=== PATIENT | male | born 1960 | race Caucasian/White ===

== ENCOUNTER 2020-05-16 14:06 | Outpatient (CLI) | payer OTHER, SELFPAY ==
--- NOTE | ~2020-05-16 | US_ITS ---
EXAMINATION: US art doppler w ester DYKES EXAM DATE: 05/16/2020 14:59 INDICATION: Leg claudication, pain. TECHNIQUE: Segmental pressures and plethysmographic and Doppler waveforms of the brachial and lower e xtremity arteries were obtained. There is no prior study for comparison. FINDINGS: Right and left brachial artery pressures of 126 mm Hg and 135 mm Hg, respectively, are concordant (no rmal difference <= 30 mmHg). The right and left thigh-brachial pressure indices are 0.50, 0.44, resp ectively (normal > 1.2). RIGHT LEG: The ankle-brachial index (WALESKA) is 0.53 (normal >= 0.9-1). The great toe-brachial index (TBI) is 0.59 (normal >= 0.65). The lower extremity ratios, segmental pressure gradients as follows; Proximal superficial femoral artery:- 0.50 (68 mmHg). Distal superficial femoral artery: ----- 0.54 (73 mmHg). Popliteal: 0.55 (77 mmHg). Dorsalis pedis: 0.47 (64 mmHg). Posterior tibial: 0.53 (71 mmHg). (Normal gradients <= 20-30 mmHg between adjacent levels on the same leg or the same levels on the two legs). Arterial waveforms are monophasic. LEFT LEG: The ankle-brachial index (WALESKA) is 0.47 (normal >= 0.9-1). The great toe-brachial index (TBI) is 0.42 (normal >= 0.65). The lower extremity ratios, segmental pressure gradients as follows; Proximal superficial femoral artery:- 0.44 (60 mmHg). Distal superficial femoral artery: ----- 0.41 (56 mmHg). Popliteal: 0.47 (64 mmHg). Dorsalis pedis: 0.47 (64 mmHg). Posterior tibial: 0.47 (63 mmHg). (Normal gradients <= 20-30 mmHg between adjacent levels on the same leg or the same levels on the two legs). Arterial waveforms are monophasic. IMPRESSION: 1. Right ankle-brachial index 0.53, moderately decreased. 2. Left ankle-brachial index 0.47, moderately decreased. 3. Segmental pressures as above suggesting inflow stenosis which could indicate significant aortoili ac arterial sclerosis. This could be further evaluated with CTA abdomen pelvis with contrast. Reviewed, dictated and finalized at location B. IS DESK TEAM MEMBER IMPRESSION: 1. Right ankle-brachial index 0.53, moderately decreased. 2. Left ankle-brachial index 0.47, moderately decreased. 3. Segmental pressures as above suggesting inflow stenosis which could indicat e significant aortoiliac arterial sclerosis. This could be further evaluated wi CTA abdomen pelvis with contrast.
--- NOTE | ~2020-05-16 | XR_ITS ---
EXAMINATION: XR lumbar spine 2-3V DATE: 05/16/2020 14:29 INDICATION: Leg pain and claudication TECHNIQUE: Anteroposterior and lateral views of the lumbar spine, and cone-down lateral view of the l umbosacral junction were obtained. COMPARISON: 05/22/2015 FINDINGS: Alignment is normal. Chronic mild anterior wedging at T12. Lumbar vertebral body heights are normal. Mild disc height loss at T10-T11 through T12-L1. Lumbar disc heights are preserved with mild degenera tive endplate changes. Moderate lower lumbar facet osteoarthritis. IMPRESSION: 1. Mild lumbar and lower thoracic spondylosis. Reviewed, dictated and finalized at location A. NICAL PROGRAMS MANAGER
== END 2020-05-16 14:07 | disposition home or self-care (01) ==
LOC: ANHIMG 14:13
PROVIDERS: PCP Emergency Medicine; Visit Provider Emergency Medicine
DX: M79.669 Pain in unspecified lower leg (principal); I73.9 Peripheral vascular disease, unspecified; M47.816 Spondylosis without myelopathy or radiculopathy, lumbar region; M47.814 Spondylosis without myelopathy or radiculopathy, thoracic region
CPT/HCPCS: 72100; 93923

== ENCOUNTER 2020-09-27 09:49 | Outpatient (CLI) | payer OTHER, SELFPAY ==
--- NOTE | 2020-09-27 17:19 | WPDSIXMINUTE ---
Six Minute Walk Procedure Procedure Performed Pulmonary Stress Test (6 min walk) Six Minute Walk This is a 6 minutes walk test. The test was performed and interpreted in accordance with the 2014 ERS/ATS task force guidelines. Findings: The patient's resting room air oxygen saturation measured by pulse oximetry was 94%. Patient ambulated for 396 meters and oxygen saturation remained 94 to 98%. Heart rate at the end of the study was 96 bpm. The patient did not qualify for supplemental oxygen at rest or with ambulation. There are no prior studies for comparison.
--- NOTE | 2020-09-27 17:21 | WPDPFTINT ---
PFT Procedure Performed PFT Procedure Performed Spirometry with Pre/Post Bronchodilator Plethysmography (Lung Vol) Diffusing Cap (DLCO) Flow Vol Loop PFT Interpretation This is a pulmonary function test with pre and post-bronchodilator spirometry, plethysmography and diffusing capacity. The test was performed and results interpreted in accordance with the 2019 and 2005 ATS/ERS Task Force guidelines respectively using the Global Lung Function Initiative-2012 reference equations. Patient demonstrated good effort and cooperation. Reproducibility criteria were met. The quality of the pre bronchodilator spirometry maneuver was Grade A and post bronchodilator spirometry maneuver was Grade B. Findings: Spirometry: There is decreased maximal expiratory airflow at all lung volumes with concave expiratory flow tracing. The pre bronchodilator FVC is 5.28 L, 116% predicted. The pre bronchodilator FEV1 is 2.67 L, 76% predicted. The FEV1: FVC ratio is 51%. The post bronchodilator FVC is 5.69 L, representing an 8% increase. The post bronchodilator FEV1 is 3.10 L, representing a 16% increase. Plethysmography: The total lung capacity is 7.43 L, 110% predicted. The functional residual capacity is 3.79 L, 108% predicted. The residual volume is 2.16 L, 101% predicted. Diffusing capacity: The absolute diffusion capacity is 13.1, 46% predicted. The diffusing capacity corrected for alveolar volume is 1.89, 43% predicted. Impression: There is a mild obstructive abnormality with significant improvement after inhaling a single dose of albuterol. The lung volumes are normal. The absolute diffusing capacity is moderately decreased and remains moderately decreased when corrected for alveolar volume.normalizes when corrected for alveolar volume. There are no prior studies for comparison
== END 2020-09-27 09:50 | disposition home or self-care (01) ==
PROVIDERS: PCP Emergency Medicine; Visit Provider Internal Medicine Critical Care Medicine
DX: R06.02 Shortness of breath (principal); R91.8 Other nonspecific abnormal finding of lung field
CPT/HCPCS: 94060; 94618; 94726; 94729

== ENCOUNTER 2020-10-23 14:01 | Outpatient (CLI) | payer OTHER, SELFPAY ==
--- NOTE | ~2020-10-23 | PE_ITS ---
EXAMINATION: PET skull to mid thigh DATE: 10/23/2020 15:58 INDICATION: Nonspecific abnormal finding of lung, lung nodule TECHNIQUE: Blood glucose level was 106 mg/dL. 9.048 mCi of 18-fluorodeoxyglucose (18-FDG) was adminis tered i.v. Low dose computed tomography (CT) images were acquired from the base of the brain to the p roximal thighs for attenuation correction and anatomic localization. Positron emission tomography (PE T) images were acquired in the same distribution beginning 70 minutes after injection. Images includi ng fused PET/CT images were reconstructed in axial, coronal, and sagittal planes. Automated exposure control technique was employed. The dose-length product was 441.57mGy-cm. COMPARISON: Chest CT dated 11/25/2017 and 07/02/2020 FINDINGS: Head/neck: There is symmetric increased activity in the oral cavity, palatine tonsils, parotid glands, submandi bular glands, laryngeal muscles and ocular muscles without CT correlate, likely physiologic. No patho logically enlarged cervical lymphadenopathy or suspicious foci of increased FDG uptake in the visuali zed head or neck. Chest: Mild to moderate emphysema. There is been slight interval increase in size of a poorly defined, previ ously 1.4 cm groundglass nodule on 11/25/2017, currently measuring 1.6 cm. No definitive solid soft ti ssue component or significant increased FDG uptake. 4 mm right lower lobe nodule along the dome of th e diaphragm without evident FDG uptake. Minimal dependent and basilar atelectasis in the bilateral lo wer lobes. No pulmonary edema or pleural effusion. Heart size is normal. No pericardial or pleural ef fusion. Thoracic aorta is normal in caliber. No pathologically enlarged or FDG avid thoracic lymphade nopathy. Abdomen/pelvis/proximal thighs: Physiologic renal accumulation and excretion of FDG activity in the kidneys, bladder and along portio ns of ureters. 5.1 cm left renal cyst. Normal degree and heterogenous pattern of increased uptake thr oughout the liver without radiologic correlate or dominant FDG avid lesion. The gallbladder, pancreas , spleen and bilateral adrenal glands are normal. Prominent diverticulosis along the descending and s igmoid colon without adjacent inflammatory change to suggest diverticulitis. There is moderate uptake at the cecum and ascending colon which is without radiologic correlate. Mild uptake throughout the r emainder of the bowels with no bowel obstruction. Appendix is normal.Mild prostatomegaly measuring 4. 8 x 3.3 cm. No other abnormal foci of increased FDG uptake or pathologically enlarged lymphadenopathy in the abdomen, pelvis or proximal thighs. Incidentally noted distal aortic and proximal bilateral c ommon femoral artery stenting. Musculoskeletal: No suspicious lytic, blastic or FDG avid bone lesions. IMPRESSION: 1. Mild to moderate emphysema with minimal increase in size since 2018 of a 1.6 cm groundglass nodule in the right upper lobe without evident solid soft tissue component or abnormal increased FDG uptake . Lung-RADS category 2: Benign appearance or behavior. Continue annual screening with noncontrast low -dose chest CT in 12 months. 2. Diverticulosis. Reviewed, dictated and finalized at location A. IMPRESSION: 1. Mild to moderate emphysema with minimal increase in size since 2018 of a 1.6 cm groundglass nodule in the right upper lobe without evident solid soft tissu e component or abnormal increased FDG uptake. Lung-RADS category 2: Benign appe arance or behavior. Continue annual screening with noncontrast low-dose chest C T in 12 months. 2. Diverticulosis.
[2020-10-23 14:20] LABS: Glucose Point of Care 106 mg/dl (65-105)
== END 2020-10-23 14:02 | disposition home or self-care (01) ==
LOC: ANHIMG 14:06
PROVIDERS: PCP Emergency Medicine; Visit Provider Internal Medicine Critical Care Medicine
DX: R91.8 Other nonspecific abnormal finding of lung field (principal); J43.9 Emphysema, unspecified; K57.90 Diverticulosis of intestine, part unspecified, without perforation or abscess without bleeding
CPT/HCPCS: 78815; 82948; A9552

== ENCOUNTER 2021-06-18 17:50 | Outpatient (CLI) | payer OTHER, SELFPAY ==
--- NOTE | ~2021-06-18 | CT_ITS ---
EXAMINATION: CT diagnostic chest wo con DATE: 06/18/2021 18:07 INDICATION: Lung mass TECHNIQUE: Computed tomography (CT) of the chest was performed without intravenous contrast. The dose -length product (DLP) was 249.91 mGy-cm. Automated exposure control and iterative reconstruction tech nique were employed. COMPARISON: 10/23/2020, 07/02/2020 FINDINGS: There is moderate emphysema. There are stable 16 mm and 10 mm groundglass nodules of the ri ght upper lobe without an identifiable solid component. A 4.3 x 3.6 cm masslike opacity has developed in the right lower lobe with multiple smaller satellite nodules seen in the right lower lobe. There is no pleural effusion or pneumothorax. Right hilar, right paratracheal, and precarinal lymphadenopat hy have developed. The heart size is normal. There is a 5 cm cyst of the left kidney. A 3 mm nonobstr ucting stone is present in the partially visualized left kidney. IMPRESSION: 1. Masslike opacity of the right lower lobe smaller satellite nodules which may be infectious/inflamm atory given the normal appearance in this region on relatively recent comparison CT however malignanc y is a consideration. Follow-up CT in one month after appropriate therapy is recommended. 2. Right hilar and mediastinal lymphadenopathy, reactive versus metastatic disease. 3. Moderate emphysema. Reviewed, dictated and finalized at location A. MIX OPERATOR IMPRESSION: 1. Masslike opacity of the right lower lobe smaller satellite nodules which may be infectious/inflammatory given the normal appearance in this region on relat ively recent comparison CT however malignancy is a consideration. Follow-up CT in one month after appropriate therapy is recommended. 2. Right hilar and mediastinal lymphadenopathy, reactive versus metastatic dise ase. 3. Moderate emphysema.
== END 2021-06-18 17:51 | disposition home or self-care (01) ==
LOC: ANHIMG 17:51
PROVIDERS: PCP Emergency Medicine; Visit Provider Nurse Practitioner Family
DX: R91.8 Other nonspecific abnormal finding of lung field (principal); R59.0 Localized enlarged lymph nodes; J43.9 Emphysema, unspecified
CPT/HCPCS: 71250

== ENCOUNTER 2021-07-18 13:27 | Observation (INO) | payer OTHER, SELFPAY ==
[2021-07-18] VITALS (30 sets, daily range): BP systolic 115–152; BP diastolic 39–130; PULSE 81–108; RESP 10–30; TEMP 36.4–37.1; O2SAT 96–97
--- NOTE | ~2021-07-18 | CT_ITS ---
EXAMINATION:CT diagnostic chest w con DATE: 07/18/2021 15:54 INDICATION: Chest pain. TECHNIQUE: Computed tomography (CT) of the chest was performed with 75 mL Omnipaque 350 intravenous c ontrast. Automated exposure control and iterative reconstruction technique were employed. The dose-le ngth product (DLP) was 193.53 mGy-cm. COMPARISON: Chest CT 06/18/2021, 07/02/2020 FINDINGS: There is moderate emphysema. There is a worsened mass involving the right lower lobe and ri ght middle lobe bronchopulmonary interstitium. There are greater than 20 scattered nodules in the burke gs in a random distribution. The largest measures 10 mm in left lower lobe, increased from 4 mm on . There are peripheral airspace and groundglass opacities in right lower lobe. There is septal thickening in right middle lobe and right lower lobe. No pleural effusion. There is a right posterio r diaphragmatic hernia containing fat. There is mediastinal and right hilar lymphadenopathy. For exam ple, a right hilar node measures 3.1 x 2.4 cm, increased from 2.0 x 1.7 cm. There is a 5.2 cm cyst in left kidney. There is mild thoracic spondylosis and severe cervical spondylosis. IMPRESSION: 1. Worsened mass in right lung middle and lower lobes at the bronchopulmonary interstitium, consisten t with primary malignancy and lymphangitic spread of tumor. Consider bronchoscopy. 2. Greater than 20 scattered nodules in the lungs in a random distribution measuring up to 10 mm with interval worsening, consistent metastatic disease. 3. Worsened right hilar and mediastinal lymphadenopathy, consistent with metastatic disease. 4. Moderate emphysema. Reviewed, dictated and finalized at location A. IMPRESSION: 1. Worsened mass in right lung middle and lower lobes at the bronchopulmonary i nterstitium, consistent with primary malignancy and lymphangitic spread of tumo r. Consider bronchoscopy. 2. Greater than 20 scattered nodules in the lungs in a random distribution claribel uring up to 10 mm with interval worsening, consistent metastatic disease. 3. Worsened right hilar and mediastinal lymphadenopathy, consistent with metast atic disease. 4. Moderate emphysema.
--- NOTE | ~2021-07-18 | CT_ITS ---
EXAMINATION: CT brain wo con DATE: 07/18/2021 17:58 INDICATION: Headache, bilateral temporal areas and posterior head TECHNIQUE: Computed tomography (CT) of the head was performed without intravenous contrast. The mA wa s adjusted according to patient size. Iterative reconstruction technique was employed. Exam dose: 60 5.33 mGy-cm total exam DLP. COMPARISON: None FINDINGS: No intracranial mass lesion or hemorrhage or cerebrovascular accident is evident. No midlin e shift or mass effect. Normal ventricular size. No subdural or epidural hematoma. No orbital mass lesion. There is patchy soft tissue thickening of the ethmoid air cells bilaterally, mild mucoperiosteal thic kening of the left maxillary sinus. The mastoid air cells are normally developed and aerated. No fracture or bone destruction of the cranial vault. IMPRESSION: No significant abnormality Reviewed, dictated and finalized at [facility]. Reviewed, dictated and finalized at location A. IMPRESSION: No significant abnormality
--- NOTE | ~2021-07-18 | XR_ITS ---
EXAMINATION: XR chest 2V DATE: 07/18/2021 14:03 INDICATION: Chest pain. TECHNIQUE: Frontal and lateral views of the chest were obtained. COMPARISON: Chest CT 06/18/2021, 07/02/2020, PET/CT 10/23/20 FINDINGS: There are persistent airspace opacities in superior segment right lower lobe. No pleural ef fusion or pneumothorax. The heart size is normal. IMPRESSION: 1. Persistent airspace opacities in right lung lower lobe suspicious for malignancy with lymphangitic spread of tumor. Chest CT with contrast is recommended. Reviewed, dictated and finalized at location A. IMPRESSION: 1. Persistent airspace opacities in right lung lower lobe suspicious for malign juan with lymphangitic spread of tumor. Chest CT with contrast is recommended.
--- NOTE | 2021-07-18 13:38 | ECG_ITS ---
Measurements Intervals [place] Rate: 85 P: 3 LA: 141 QRS: 39 QRSD: 95 T: 61 QT: 354 QTc: 422 Interpretive Statements SINUS RHYTHM INCOMPLETE RIGHT BUNDLE BRANCH BLOCK [90+ ms QRS DURATION, TERMINAL R IN V1/V2, 40+ ms S IN I/aVL/V4/V5/V6] BORDERLINE ECG NO PREVIOUS ECG AVAILABLE FOR COMPARISON Electronically Signed On 07-19-2021 16:00:42 CDT by Aidan Horan M.D.
[2021-07-18] MEDS: ASPIRIN 81 MG CHEWABLE TABLET 324 MG PO (13:57)
[2021-07-18] MEDS: MORPHINE SULFATE (*CRX) 4 MG/ML INJ IV PUSH (14:17)
[2021-07-18] MEDS: ONDANSETRON INJ 4 MG/2 ML VIAL IV PUSH (14:17)
[2021-07-18 14:38] LABS: NT Pro B Type Natriuretic Pept 42 pg/mL (5-100)
[2021-07-18 15:00] LABS: Basophils Percent Auto 0.4 % (0.2-1.2); Eosinophils Absolute Auto 0.1 K/mm3 (0-0.3); Eosinophils Percent Auto 0.9 % (0-4.4); Hematocrit 42.2 % (42.0-52.0); Hemoglobin 14.4 g/dL (14.0-18.0); Immature Granulocyte Absolute 0.04 K/mm3 (0.00-0.031); Immature Granulocyte Percent A 0.4 % (0-0.5); Lymphocytes Absolute Auto 1.09 K/mm3 (0.9-3.2); Lymphocytes Percent Auto 9.6 % (18.3-44.2); Mean Corpuscular HGB Conc 34.1 g/dl (32-36); Mean Corpuscular Hemoglobin 30.9 pg (26-34); Mean Corpuscular Volume 90.6 fl (80-100); Monocytes Absolute Auto 0.6 K/mm3 (0.1-0.6); Monocytes Percent Auto 5.6 % (2.6-8.5); Neutrophils Absolute Auto 9.4 K/mm3 (1.3-6.7); Neutrophils Percent Auto 83.1 % (45.5-73.1); Platelet Count Result 340 k/mm3 (150-375); Red Blood Count 4.66 M/mm3 (4.6-6.20); Red Cell Distribution Width 13.3 % (11.5-14.5); White Blood Count 11.3 K/mm3 (4.5-10.0)
[2021-07-18 15:21] LABS: Prothrombin Time 12.8 Seconds (11.1-14.7)
[2021-07-18 15:22] LABS: Partial Thromboplastin Time 32.5 SECONDS (22.3-36.8)
[2021-07-18 15:24] LABS: D Dimer 0.63 ug/mL (<0.48)
[2021-07-18 15:48] LABS: Estimated Glomerular Filt Rate > 60
--- NOTE | 2021-07-18 15:58 | ED.CHESTPAIN ---
HPI - Chest Pain General Chief Complaint: Chest Pain Stated Complaint: lungs and heart hurting real bad Time Seen by Provider: 07/18/21 13:44 Source: patient Mode of arrival: ambulatory Limitations: no limitations History of Present Illness HPI narrative: Patient is 60 years old white male presents with chest pain mainly on the right side for months. Patient been seen by linux systems analyst and the family physician numerous of time without a specific diagnosis. Patient lives alone, drove to the hospital by his brother, history of mental disease, disabled, currently on Tylenol 3 for osteoarthritis. Patient reports that pain sometimes gets better and Tylenol 3. Patient sister and father had history of lung cancer. Patient have history of hypertension COPD, quit smoking 1 year ago, does not drink, uses marijuana, had history of Covid infection 1 year ago Related Data Home Medications Medication Instructions Recorded Confirmed acetaminophen 300 mg-codeine 30 mg 1 tablet PO Q8H PRN 09/11/20 tablet amlodipine 10 mg tablet 10 mg PO tablet 09/11/20 bupropion HCl 150 mg tablet,12 hr 150 mg PO tablet 09/11/20 sustained-release clopidogrel 75 mg tablet 75 mg PO tablet 09/11/20 diazepam 10 mg tablet 10 mg PO tablet 09/11/20 ergocalciferol (vitamin D2) 1,250 50,000 unit PO cap 09/11/20 mcg (50,000 unit) capsule famotidine 40 mg tablet 40 mg PO DAILY 09/11/20 irbesartan 150 mg tablet 150 mg PO tablet 09/11/20 rosuvastatin 20 mg tablet 20 mg PO tablet 09/11/20 zolpidem 10 mg tablet 10 mg PO tablet 09/11/20 Allergies Allergy/AdvReac Type Severity Reaction Status Date / Time No Known Allergies Allergy Unverified 10/30/20 11:16 Review of Systems Review of Systems: CONSTITUTIONAL: Denies fever, chills, or sweats. EYES: Denies visual changes, redness, or discharge. ENT: Denies rhinorrhea, congestion, sore throat, or otalgia. CARDIOVASCULAR: Right chest pain RESPIRATORY: Denies cough or dyspnea. GASTROINTESTINAL: Denies abdominal pain, nausea, vomiting, or diarrhea. GENITOURINARY: Denies dysuria or hematuria. SKIN: Denies rash or itching. MUSCULOSKELETAL: Denies back pain, joint pain, or myalgia. NEUROLOGIC: Denies headache, numbness, or weakness. PSYCHIATRIC: Denies anxiety or depression. [facility], LAT[facility] Past Medical History Medical History Claudication of both lower extremities History of tobacco use Lung mass Marijuana smoker Shortness of Breath Family History Family History Father Lung cancer Diabetes mellitus Heart disease Sibling Heart disease Hypertension Diabetes mellitus Social History Social History Social History: disabled; smoke marijuana, quit smoking tobacco May 2020, started age 7 and was 1.5 ppd when he stopped. Smoking packs per day: 1.5 Smoking cigarettes per day: 30.0 Years smoked: 53 Smoking pack-years: 79.50 Smoking status: Former smoker Alcohol intake: current Substance use: current Substance use type: marijuana Other substance usage details: smokes marijuana every night to help get to sleep Exam Narrative: General appearance: Well-developed, well-nourished Skin: Normal color Head: Normocephalic, nontraumatic Eyes: Clear conjunctiva ENT: Oropharynx normal, ears normal, nose normal Neck: Supple, nontender Chest and respiratory: Airway patent, no respiratory distress, no accessory muscle use Heart: Regular rate/rhythm Abdomen: Soft, nontender, no organomegaly, quiet bowel sounds Vascular: Normal peripheral pulses, normal capillary refill. Musculoskeletal: Normal range of motion, nontender back Neurologic: Alert and oriented ?3, COORDINATE MEASURING MACHINE TECHNICIAN is normal as tested, no gross motor deficit
[2021-07-18] MEDS: HYDROmorphone HCL INJ (*CRX) 1 MG/ML SYR 0.5 MG IV PUSH ×2 (17:13→17:50)
--- NOTE | 2021-07-18 17:30 | PM.IMHP ---
H&P: HPI History of Present Illness Date/Time: 07/18/21 17:30 Chief Complaint: Chest pain and shortness of breath. Narrative: This is a 60-year-old male, former smoker, with hypertension, hyperlipidemia, peripheral vascular disease with history of lower extremity stents, and posttraumatic stress disorder who presented to the emergency department from home for evaluation of chest pain and shortness of breath. He reports a gradual onset of right-sided chest over the past several months though it has gotten worse in the past 2 weeks. The pain is now pretty persistent and he describes a dull aching pain although occasionally it is sharp and shooting in nature. It seems to be worse with movement, cough, and shortness of breath. He has been taking acetaminophen and aspirin in addition to the Tylenol 3 he takes for chronic pain, without much benefit. Additionally he has been feeling short of breath in the last couple of weeks and that seems to be worse at nighttime however he denies overt orthopnea. Imaging today shows a right lung mass with evidence of metastatic disease to the left lung and findings concerning for lymphangitic spread, and he is being admitted in this setting. He has had a right pulmonary nodule dating back to imaging on 03/23/2019 which has been followed yearly; PET scan in October 2020 showed a 1.6 cm right upper lobe nodule without abnormal increased uptake. Due to ongoing issues with chest pain shortness of breath, a repeat CT was done on 06/19/2021 and it showed a masslike opacity in the right lower lobe and smaller satellite nodules which may be infectious or inflammatory. He was started on a course of antibiotics and reports perhaps mild improvement though his symptoms are now worse again. He has a positive family history for lung cancer and he has lost about 20 pounds unintentionally in the last several months. He denies fever, chills, and sweats. No exertional chest pain. No orthopnea, PND, or lower extremity edema. He denies nausea and vomiting. Review of Systems Review of Systems: 12 systems were reviewed. He has had a constant headache for several weeks, mainly in the posterior occiput. No syncope or near syncope. No vertigo, focal weakness, or paresthesias. No auditory visual changes. Except as documented, all other systems were reviewed and are negative PMFSH Past Medical History Medical History (Updated 07/18/21 @ 19:32 by Zelda Adkins PA-C) History of tobacco use [id number] smoking history. Quit in 2020 Hyperlipidemia Hypertension Insomnia Marijuana smoker Peripheral vascular disease Posttraumatic stress disorder Surgical History Surgical History (Updated 07/18/21 @ 19:28 by Zelda Adkins PA-C) History of vascular surgery Bilateral lower extremity stent. Family History Family History Father Lung cancer Diabetes mellitus Heart disease Sibling Heart disease Hypertension Diabetes mellitus Social History Social History (Updated 07/18/21 @ 19:30 by Zelda Adkins PA-C) Social History: The patient lives alone with his dog, Kaila. He is on disability. Smoked 1.5 packs of cigarettes a day since the age of 7, quit in 2020. Smokes marijuana. No alcohol abuse. He nominate his brother, Lucien King, as his surrogate decision-maker. CODE STATUS: Full code. Smoking packs per day: 1.5 Smoking cigarettes per day: 30.0 Years smoked: 53 Smoking pack-years: 79.50 Meds Home Medications and Allergies Home Medications Medication Instructions Recorded Confirmed Type acetaminophen 300 mg-codeine 30 mg 1 tablet PO Q8H PRN 09/11/20 History tablet amlodipine 10 mg tablet 10 mg PO tablet 09/11/20 History bupropion HCl 150 mg tablet,12 hr 150 mg PO tablet 09/11/20 History sustained-release clopidogrel 75 mg tablet 75 mg PO tablet 09/11/20 History diazepam 10 mg tablet 10 mg PO tablet 09/11/20 History ergocalci
--- NOTE | 2021-07-18 18:34 | PC.NURSE ---
Per provider Dr. King there is no need to draw a 3 or 6 hour troponin
[2021-07-18 18:47] LABS: Alanine Aminotransferase 28 U/L (4-50); Albumin Level 4.4 g/dL (3.5-5.1); Alkaline Phosphatase 100 U/L (38-126); Anion Gap 9 mmol/L (8-16); Aspartate Amino Transferase 34 U/L (17-59); Bilirubin,Total 0.5 mg/dL (0.2-1.3); Blood Urea Nitrogen 25 mg/dL (9-20); Carbon Dioxide 20 mmol/L (22-30); Chloride 109 mmol/L (98-107); Estimated Glomerular Filt Rate > 60; Glucose 125 mg/dL (65-110); Lipase 61 U/L (23-300); Potassium 3.7 mmol/L (3.4-5.0); Sodium 138 mmol/L (137-145)
[2021-07-18] MEDS: HYDROcodone/acetaminophen (*CRX) 5-325 MG TABLET 1 TAB PO (18:51)
[2021-07-18 18:58] LABS: Troponin I < 0.012 ng/mL (0.000-0.034)
--- NOTE | 2021-07-18 19:38 | PM.CNPUL ---
Assessment and Plan Assessment and plan (1) Mass of right lung: Code(s): R91.8 - Other nonspecific abnormal finding of lung field Status: Acute Assessment and Plan: He has an enlarging mass in the right lung, enlarged right hilar lymph nodes, and satellite lesions which is highly suspicious for metastatic lung cancer. I walked with him about having a bronchoscopy to obtain tissue for diagnosis which would guide treatment. He understands that he will be under anesthesia, and that he will not be awake. There are risks including bleeding, low oxygen levels and irregular heart rhythm. NPO after midnight, hold all aspirin, ibuprofen, Plavix, and plan for bronchoscopy with biopsies tomorrow afternoon. Time will be determined by availability in the endoscopy suite. (2) COPD (chronic obstructive pulmonary disease): Qualifiers: COPD type: unspecified COPD Qualified Code(s): J44.9 - Chronic obstructive pulmonary disease, unspecified Code(s): J44.9 - Chronic obstructive pulmonary disease, unspecified Status: Acute Assessment and Plan: 09/27/2020 PFT - mild obstructive obstructive ventilatory impairment, FEV1 76%, FEV1/FVC ratio = 51%, 16% increase in FEV1 with BD, TLC 110%, RV 101%, DLCO 46%. He is not on controller medications at home. Will start Advair along with short acting bronchodilators to manage shortness of breath. (3) History of tobacco use: Code(s): Z87.891 - Personal history of nicotine dependence Status: Acute Assessment and Plan: Quit smoking cigarettes May 2020, over a year ago. Has smoked marijuana for relief of pain. He has PTSD. Has been disabled over 15 years. (4) Shortness of Breath: Code(s): R06.02 - Shortness of breath Status: Acute Assessment and Plan: Has been short of breath, more over the last few weeks. History of Present Illness History of Present Illness Consult date: 07/18/21 Requesting physician: Breonna King MD Reason for consult: lung mass Chief complaint: Lung Mass for Bronchoscopy Narrative: NEW: Rojelio Steele is a 60 year old man who is followed in our pulmonary clinic for a lung nodule. His last visit was 10/30/2020. He missed his 6 month appointment in Apr, and had his repeat chest CT 06/19/21. He had a larger RLL mass with satellite lesions, and was started on 2 antibiotics for treatment of suspected pneumonia. This treatment seemed to help him initially. He developed increased right posterior chest wall pain with deep breathing and movement. He is not having any difficulty swallowing. He has lost 20 lb in the last month which he attributes to no longer eating candy. He is taking aspirin 325 mg 4 at a time, ibuprofen 2 tablets, Tylenol #3 to treat his right sided chest pain and headache pain which started in mid June. His last Plavix was this morning. He is a former smoker, stopped smoking cigarettes May 2020, started smoking tobacco at age 7 and started marijuana age 13; He is more short of breath now than a few months ago. He rolled his own cigarettes, about 1.5 packs a day, added filters; has a marijuana card. He has little sputum, had mild blood streaking a month ago. There is no history of drug abuse. His father and sister both had lung cancer in their 60s, and shortly after lung biopsies. DATA: * 10/23/2020 PET scan : mild to moderate emphysema w minimal increase in size since 2018, 1.6 ground glass nodule RUL, ni increased uptake. Continue annual screening. * 09/27/2020 PFT - mild obstructive obstructive ventilatory impairment, FEV1 76%, FEV1/FVC ratio = 51%, 16% increase in FEV1 with BD, TLC 110%, RV 101%, DLCO 46%. * 09/27/2020 - 6 Minute Walk - no need for
[2021-07-18] MEDS: FLUTICASONE/SALMETEROL 115-21 MCG INHALER 1 PUFF 2 PUFF INHALATION (20:41)
[2021-07-18 20:53] LABS: Troponin I < 0.012 ng/mL (0.000-0.034)
[2021-07-18] MEDS: HYDROcodone/acetaminophen (*CRX) 10-325 MG TABLET 1 TAB PO (22:52)
[2021-07-19] MEDS: HYDROmorphone HCL INJ (*CRX) 1 MG/ML SYR IV PUSH ×2 (02:27→09:35)
[2021-07-19] MEDS: HYDROcodone/acetaminophen (*CRX) 10-325 MG TABLET 1 TAB PO ×2 (04:02→12:53)
[2021-07-19 05:51] VITALS: BP 130/84; PULSE 99; RESP 16; TEMP 36.7; O2SAT 97
[2021-07-19 06:39] LABS: Hematocrit 40.5 % (42.0-52.0); Hemoglobin 13.5 g/dL (14.0-18.0); Mean Corpuscular HGB Conc 33.3 g/dl (32-36); Mean Corpuscular Hemoglobin 31.3 pg (26-34); Platelet Count Result 315 k/mm3 (150-375); Red Blood Count 4.31 M/mm3 (4.6-6.20); Red Cell Distribution Width 13.2 % (11.5-14.5); White Blood Count 12.6 K/mm3 (4.5-10.0)
[2021-07-19 06:55] LABS: Anion Gap 6 mmol/L (8-16); Blood Urea Nitrogen 24 mg/dL (9-20); Calcium 8.6 mg/dL (8.4-10.2); Carbon Dioxide 24 mmol/L (22-30); Chloride 106 mmol/L (98-107); Estimated CRCL calculation 84 ml/min; Estimated Glomerular Filt Rate > 60; Glucose 111 mg/dL (65-110); Potassium 3.8 mmol/L (3.4-5.0); Sodium 136 mmol/L (137-145)
[2021-07-19 08:00] VITALS: BP 140/92; PULSE 129; RESP 18; TEMP 36.3; O2SAT 95
[2021-07-19 09:00] VITALS: O2SAT 97
[2021-07-19] MEDS: FLUTICASONE/SALMETEROL 115-21 MCG INHALER 1 PUFF 2 PUFF INHALATION (09:01)
--- NOTE | 2021-07-19 11:24 | PCCCNOTE ---
On 07/19/21, the student, [Stephanie Olmedo ], provided care and completed [facility] documentation on this patient. I have reviewed the student's documentation and agree with the findings.
[2021-07-19] MEDS: ROSUVASTATIN 10 MG TABLET 20 MG PO (12:53)
[2021-07-19] MEDS: FAMOTIDINE 20 MG TABLET 40 MG PO (12:53)
[2021-07-19] MEDS: amLODIPine BESYLATE 5 MG TABLET 10 MG PO (12:53)
[2021-07-19] MEDS: IRBESARTAN 150 MG TABLET PO (12:53)
[2021-07-19] MEDS: buPROPion HCL SR (12 HR) 150 MG TAB PO (12:54)
--- NOTE | 2021-07-19 14:33 | PM.DS ---
DS: Admitting Diagnosis Discharge Date 07/19/21 Admitting Diagnosis Right lung mass DS: Discharge Diagnosis Discharge Diagnosis (1) Mass of right lung: Code(s): R91.8 - Other nonspecific abnormal finding of lung field Status: Acute Assessment and Plan: Patient presented with increased SOB and pain. Noted to have enlarging right lung mass on imaging, highly concerning for primary malignancy. He is established with pulmonology and was seen in consultation by Dr. Munoz during admission. He was admitted for bronchoscopy, however he had recently taken his Plavix and therefore this could not be completed. Bronchoscopy was rescheduled for , 07/25/2021. Plavix was held. Instructed to hold aspirin 2 days prior to bronchoscopy. Follow-up with pulmonology. (2) Pleuritic pain: Code(s): R07.81 - Pleurodynia Status: Acute Assessment and Plan: Right-sided pleuritic chest pain related to the above. Pulmonary embolism unlikely. Patient was prescribed a short course of [place] per pulmonology. Dr. Munoz communicated this to the patient's PCP, Dr. Franks, as the patient does follow with him monthly for narcotic pain medication prescriptions for chronic pain. (3) Hypertension: Code(s): I10 - Essential (primary) hypertension Status: Acute Assessment and Plan: Blood pressures were reviewed and they were reasonable. Continue amlodipine and irbesartan. (4) Hyperlipidemia: Code(s): E78.5 - Hyperlipidemia, unspecified Status: Acute Assessment and Plan: Continue statin, LFTs within normal limits. (5) Peripheral vascular disease: Code(s): I73.9 - Peripheral vascular disease, unspecified Status: Acute Assessment and Plan: He is established with vascular surgery and had lower extremity stents placed in June 2020 for which he is maintained on dual anti-platelet therapy. Dr. Munoz spoke with the patient's vascular surgeon, Dr. Jonny Ureña. Okay to hold Plavix for 1 week. DS: Summary Hospital Course Hospital Course: Date of admission: 07/18/2021 Date of discharge: 07/19/2021 Rojelio Steele is a 60-year-old male with a history of hypertension, hyperlipidemia, peripheral vascular disease, PTSD, and tobacco abuse who presented to the emergency department on 07/18/2021 with complaints of pleuritic chest pain and increased shortness of breath. The patient has a right lung mass that has been followed for several years, going back to [address] and PET scan. The patient noted a 20 lb weight loss. Imaging on presentation showed worsened mass in the right middle and lower lung lobes at the bronchopulmonary interstitium consistent with malignancy and lymphangitic spread of tumor as well as greater than 20 scattered nodules in the lungs with interval worsening and worsened right hilar and mediastinal lymphadenopathy, consistent with metastatic disease. He was admitted to the hospitalist service for further evaluation and management and was seen in consultation by pulmonology. Plan for bronchoscopy, however the patient had been taking Plavix and this was deferred until , 07/25/2021 to allow the patient to be off Plavix for at least 5 days. When I saw the patient, he was quite distressed regarding this likely diagnosis. He did make a comment that he did not see a purpose in completing a bronchoscopy, stating ?I am slowly dying. I did talk to him about alternative options including hospice care, however he ultimately decided that he would like to proceed with the bronchoscopy and then consider his treatment options following these results. He was educated on need for holding aspirin and Plavix prior to bronchoscopy. I discussed with the patient worrisome signs and symptoms for which to return and he was educated on his medications. He was discharged in hemodynamically stable condition on 07/19/2021 and will follow-up on 07/25/2021 f
== END 2021-07-19 15:40 | disposition home or self-care (01) ==
LOC: ANHED 16:58 → ANH3MEDSUR 17:20
PROVIDERS: Emergency Medicine; Physician Assistant; Admitting Provider Family Medicine; Emergency Provider Emergency Medicine; PCP Emergency Medicine; Visit Provider Physician Assistant
DX: R91.8 Other nonspecific abnormal finding of lung field (principal); R07.81 Pleurodynia; R06.02 Shortness of breath; J44.9 Chronic obstructive pulmonary disease, unspecified; I10 Essential (primary) hypertension; I73.9 Peripheral vascular disease, unspecified; G47.00 Insomnia, unspecified; F43.10 Post-traumatic stress disorder, unspecified; E78.5 Hyperlipidemia, unspecified; F12.90 Cannabis use, unspecified, uncomplicated; Z87.891 Personal history of nicotine dependence; Z86.16 Personal history of COVID-19; Z79.891 Long term (current) use of opiate analgesic; Z79.02 Long term (current) use of antithrombotics/antiplatelets; Z95.820 Peripheral vascular angioplasty status with implants and grafts
CPT/HCPCS: 36415; 70450; 71046; 71260; 80048; 80053; 83690; 83735; 83880; 84443; 84484; 85025; 85027; 85380; 85610; 85730; 93005; 94640; 96374; 96375; 96376; 99285; A9270; G0378; G0379; J1170; J2270; J2405; Q9967

== ENCOUNTER 2021-08-14 18:05 | Observation (INO) | payer OTHER, SELFPAY ==
[2021-08-14] VITALS (19 sets, daily range): BP systolic 112–149; BP diastolic 67–91; PULSE 76–108; RESP 20–28; TEMP 36.9–37.1; O2SAT 91–95; BMI 23.2; BMI 23.1
--- NOTE | ~2021-08-14 | XR_ITS ---
EXAMINATION: XR chest 1V portable Exam Date/Time: 08/14/2021 20:00 CDT CLINICAL HISTORY: SOB,DECREASED APPET,LUNG CANCER-METS,HTN,SMOKER Comparison: CT chest 07/18/2021. RESULT: Lines, tubes, and devices: None. Lungs and pleura: Increased masslike opacity over the right hilum. Increased coarse interstitial opa cities over the right hilum and right lower lobe. Scattered ill-defined nodular opacities in both burke gs. Cardiomediastinal silhouette: Stable cardiomediastinal silhouette, except as noted above. Other: No acute osseous or upper abdominal finding. IMPRESSION: Interval progressive primary lung malignancy, lymphangitic spread, and genny and pulmonary metastatic disease. Reviewed, dictated and finalized at location K. IMPRESSION: Interval progressive primary lung malignancy, lymphangitic spread, and genny an d pulmonary metastatic disease.
--- NOTE | 2021-08-14 18:33 | ED.GENADULT ---
HPI - General Adult General Chief complaint: Unspecified Stated complaint: sob, diagnosed with lung ca Time Seen by Provider: 08/14/21 18:31 Source: patient Limitations: no limitations History of Present Illness HPI narrative: Patient is 60 years old white male presented to the ED complaining of chest pain, headache, poor appetite, nausea, intermittent vomiting, unable to sleep more than 2 hours, for the last few weeks/months. History of hypertension, hyperlipidemia, peripheral vascular disease, PTSD, tobacco abuse and lung mass. Patient declined bronchoscopy for tissue diagnosis. Patient also declined any further management except pain medication. Patient would like to refer to hospice at home. Related Data Home Medications Medication Instructions Recorded Confirmed oxycodone-acetaminophen 1 tablet PO Q6H PRN 08/14/21 Allergies Allergy/AdvReac Type Severity Reaction Status Date / Time No Known Allergies Allergy Unverified 10/30/20 11:16 Review of Systems Review of Systems: CONSTITUTIONAL: Denies fever, chills, or sweats. EYES: Denies visual changes, redness, or discharge. ENT: Denies rhinorrhea, congestion, sore throat, or otalgia. CARDIOVASCULAR: Denies chest pain, palpitations, or edema. RESPIRATORY: Denies cough or dyspnea. GASTROINTESTINAL: Denies abdominal pain, nausea, vomiting, or diarrhea. GENITOURINARY: Denies dysuria or hematuria. SKIN: Denies rash or itching. MUSCULOSKELETAL: Denies back pain, joint pain, or myalgia. NEUROLOGIC: Denies headache, numbness, or weakness. PSYCHIATRIC: anxiety or depression. [facility] Past Medical History Medical History History of tobacco use [id number] smoking history. Quit in 2020 Hyperlipidemia Hypertension Insomnia Marijuana smoker Peripheral vascular disease Posttraumatic stress disorder Surgical History Surgical History History of vascular surgery Bilateral lower extremity stent. Family History Family History Father Lung cancer Diabetes mellitus Heart disease Sibling Heart disease Hypertension Diabetes mellitus Social History Social History Social History: The patient lives alone with his dog, Kaila. He is on disability. Smoked 1.5 packs of cigarettes a day since the age of 7, quit in 2020. Smokes marijuana. No alcohol abuse. He nominate his brother, Lucien King, as his surrogate decision-maker. CODE STATUS: Full code. Smoking status: Never smoker Second hand tobacco smoke exposure: No Alcohol intake: never Substance use type: marijuana Spiritual care concerns: No Course Course Emergency Course: Patient is so confused about how to make a decision about the plan in the future to deal with his lung mass, lung metastasis.. Hesitant, not clear about what he wants exactly. Will be admitted for hospice referral. And pain management. Vital Signs Vital signs: Vital Signs Temperature 36.9 C 08/14/21 18:14 Pulse Rate 108 H 08/14/21 18:14 Respiratory Rate 20 08/14/21 18:14 Blood Pressure 149/67 H 08/14/21 18:14 Pulse Oximetry 95 08/14/21 18:14 Temperature 36.9 C 08/14/21 18:14 Pulse Rate 101 H 08/14/21 18:46 Respiratory Rate 08/14/21 18:14 Blood Pressure 149/67 H 08/14/21 18:14 Pulse Oximetry 95 08/14/21 18:14 Medical Decision Making Differential Diagnosis Differential Diagnosis: Blindness with metastasis, major depression, insomnia, electrolyte imbalance, failure to thrive Vital Signs Vital Signs: Vital Signs Temperature 36.9 C 08/14/21 18:14 Pulse Rate 108 H 08/14/21 18:14 Respiratory Rate 20 08/14/21 18:14 Blood Pressure 149/67 H 08/14/21 18:14 Pulse Oximetry 95 08/14/21 18:14 Temperature 36.9 C 08/14/21 18:14 Pulse Rate 101 H 08/14/21 18:46 Respirato
--- NOTE | 2021-08-14 18:45 | ECG_ITS ---
Measurements Intervals [place] Rate: 72 P: 35 VT: 152 QRS: 31 QRSD: 98 T: 43 QT: 406 QTc: 447 Interpretive Statements SINUS RHYTHM INCOMPLETE RIGHT BUNDLE BRANCH BLOCK [90+ ms QRS DURATION, TERMINAL R IN V1/V2, 40+ ms S IN I/aVL/V4/V5/V6] BORDERLINE ECG COMPARED TO ECG 07/18/2021 13:41:03 NO SIGNIFICANT CHANGES Electronically Signed On 08-15-2021 16:44:12 CDT by Jordan Lawrence M.D.
--- NOTE | 2021-08-14 18:48 | PC.NURSE ---
pt states he stopped taking his medications months ago because whats the difference, im dying anyway . states has only been taking otc nsaids and his oxycodone.
[2021-08-14 18:56] LABS: Basophils Percent Auto 0.2 % (0.2-1.2); Eosinophils Percent Auto 0.3 % (0-4.4); Hematocrit 41.1 % (42.0-52.0); Hemoglobin 13.7 g/dL (14.0-18.0); Immature Granulocyte Absolute 0.05 K/mm3 (0.00-0.031); Immature Granulocyte Percent A 0.4 % (0-0.5); Lymphocytes Absolute Auto 0.93 K/mm3 (0.9-3.2); Lymphocytes Percent Auto 7.5 % (18.3-44.2); Mean Corpuscular HGB Conc 33.3 g/dl (32-36); Mean Corpuscular Hemoglobin 29.5 pg (26-34); Mean Corpuscular Volume 88.6 fl (80-100); Mean Platelet Volume 9.1 fl (7.4-10.4); Monocytes Absolute Auto 0.7 K/mm3 (0.1-0.6); Monocytes Percent Auto 5.5 % (2.6-8.5); Neutrophils Absolute Auto 10.6 K/mm3 (1.3-6.7); Neutrophils Percent Auto 86.1 % (45.5-73.1); Platelet Count Result 419 k/mm3 (150-375); Red Blood Count 4.64 M/mm3 (4.6-6.20); Red Cell Distribution Width 13.5 % (11.5-14.5); White Blood Count 12.3 K/mm3 (4.5-10.0)
[2021-08-14 19:10] LABS: Alanine Aminotransferase 28 U/L (4-50); Albumin Level 3.6 g/dL (3.5-5.1); Alkaline Phosphatase 159 U/L (38-126); Anion Gap 13 mmol/L (8-16); Aspartate Amino Transferase 43 U/L (17-59); Bilirubin,Total 0.8 mg/dL (0.2-1.3); Blood Urea Nitrogen 29 mg/dL (9-20); Calcium 8.7 mg/dL (8.4-10.2); Carbon Dioxide 23 mmol/L (22-30); Chloride 99 mmol/L (98-107); Estimated CRCL calculation 84 ml/min; Estimated Glomerular Filt Rate > 60; Glucose 120 mg/dL (65-110); Potassium 2.7 mmol/L (3.4-5.0); Sodium 135 mmol/L (137-145)
[2021-08-14] MEDS: SODIUM CHLORIDE 0.9% IV 1,000 ML 999 ML IV CONT (19:14)
[2021-08-14] MEDS: ONDANSETRON INJ 4 MG/2 ML VIAL IV PUSH (19:15)
[2021-08-14] MEDS: HYDROmorphone HCL INJ (*CRX) 1 MG/ML SYR 0.5 MG IV PUSH ×2 (19:15→22:48)
--- NOTE | 2021-08-14 19:48 | PM.IMHP ---
H&P: HPI History of Present Illness Date/Time: 08/14/21 19:48 Chief Complaint: Generalized weakness. Narrative: This is a 60-year-old male with past medical history significant for stage iv lung cancer he presents to emergency room due to generalized weakness, intractable nausea and vomiting, pain, patient has been unable to eat in the last 2 days or so has had unintentional weight loss comes to the emergency room requesting to have hospice consulted and for better pain control. Patient has had progressively worsening weakness over the course of the last 2 weeks or so which makes it very difficult for him to take care of himself. States that the pain medication is not working very well for him as he still has significant amount of pain. Patient does not want any chemotherapy or radiation and is requesting hospice and comfort care measures only at this time. Patient has been admitted for further evaluation management and treatment. Review of Systems Review of Systems: Generalized weakness, nausea vomiting, weight loss, fatigue. Constitutional: Constitutional: Denies chills, Reports fatigue, Denies fever(s), Denies malaise, Denies night sweats, Reports poor appetite, Reports weakness and Reports weight loss Eyes: Eyes: Denies change in vision ENT: Denies dysphagia, Denies nasal congestion, Denies nasal obstruction and Denies odynophagia Cardiovascular: Cardiovascular: Denies chest pain, Denies pedal edema, Denies edema, Denies leg edema, Denies lightheadedness, Denies radiating jaw, neck or arm pain, Denies palpitations, Denies dyspnea on exertion and Denies orthopnea Respiratory: Respiratory: Denies cough, Denies excessive phlegm production and Reports dyspnea Gastrointestinal: Gastrointestinal: Denies abdominal pain, Denies dyspepsia, Denies heartburn, Denies diarrhea, Reports nausea and Reports vomiting Genitourinary: Genitourinary: Denies dysuria Musculoskeletal: Musculoskeletal: Denies arthralgias, Denies joint swelling and Reports muscle weakness Integumentary/Breasts: Skin/Breast: Denies rash Neurologic: Denies focal weakness and Denies Sensory deficit (Neuro) Psychiatric: Psychiatric: Reports no additional psychiatric complaints and Reports as per HPI Endocrine: Endocrine: Denies cold intolerance, Denies heat intolerance, Denies polyphagia, Denies polydipsia, Denies polyuria and Denies palpitations Hematologic/Lymphatic: Hematologic/Lymphatic: Reports no additional hematologic/lymphatic complaints and Reports as per HPI Allergic/Immunologic: Allergic/Immunologic: Reports no additional allergic/immunologic complaints and Reports as per HPI PMFSH Past Medical History Medical History History of tobacco use [id number] smoking history. Quit in 2020 Hyperlipidemia Hypertension Insomnia Marijuana smoker Peripheral vascular disease Posttraumatic stress disorder Surgical History Surgical History History of vascular surgery Bilateral lower extremity stent. Family History Family History Father Lung cancer Diabetes mellitus Heart disease Sibling Heart disease Hypertension Diabetes mellitus Social History Social History Social History: The patient lives alone with his dog, Kaila. He is on disability. Smoked 1.5 packs of cigarettes a day since the age of 7, quit in 2020. Smokes marijuana. No alcohol abuse. He nominate his brother, Lucien King, as his surrogate decision-maker. CODE STATUS: Full code. Smoking packs per day: 1.5 Smoking cigarettes per day: 30.0 Years smoked: 52 Smoking pack-years: 78.00 Smoking status: Former smoker Second hand tobacco smoke exposure: No Alcohol intake: never Substance use: current Substance use type: marijuana Spiritual care concerns: No M
[2021-08-14] MEDS: POTASSIUM CHLORIDE 20 MEQ TABLET 40 MEQ PO (20:13)
[2021-08-14] MEDS: HYDROcodone/acetaminophen (*CRX) 7.5-325 MG TABLET 1 TAB PO (20:14)
--- NOTE | 2021-08-14 20:25 | PC.NURSE ---
Rn called pharmacy for IV KCL and saline to start on pt. No answer. Left message
--- NOTE | 2021-08-14 20:53 | PC.NURSE ---
called pharmacy for IV potassium for pt. No answer left message
[2021-08-14] MEDS: SODIUM CHLORIDE 0.9% IV 1,000 ML 125 ML IV CONT (21:25)
[2021-08-14] MEDS: KCL 40 MEQ/WATER 100 ML 100 ML 25 ML IVPB (21:25)
--- NOTE | 2021-08-14 21:47 | PCRCNOTE ---
Window of time for administration has passed. See next available administration.
[2021-08-15] VITALS (9 sets, daily range): BP systolic 101–125; BP diastolic 71–81; PULSE 78–99; RESP 16–95; TEMP 36.6–36.9; O2SAT 92–94
[2021-08-15] MEDS: HYDROmorphone HCL INJ (*CRX) 1 MG/ML SYR 0.5 MG IV PUSH (00:29)
[2021-08-15] MEDS: KETOROLAC 30 MG/ML VIAL (*BKC) IV PUSH ×2 (01:30→09:53)
[2021-08-15] MEDS: ONDANSETRON INJ 4 MG/2 ML VIAL IV PUSH (01:53)
[2021-08-15] MEDS: oxyCODONE/ACETAMINOPHEN (*CRX) 5-325 MG TABLET 1 TABLET PO ×2 (02:15→11:03)
[2021-08-15] MEDS: oxyCODONE HCL (*CRX) 5 MG TAB IR PO ×2 (02:15→12:45)
[2021-08-15] MEDS: ALBUTEROL SULFATE NEB 2.5 MG/0.5 ML INH 5 MG INHALATION ×2 (02:25→12:54)
[2021-08-15] MEDS: IPRATROPIUM BR 0.02% INH SOLN 0.5 MG/2.5 ML VIAL INHALATION ×2 (02:26→12:54)
[2021-08-15] MEDS: HYDROmorphone HCL INJ (*CRX) 1 MG/ML SYR IV PUSH ×3 (03:11→12:05)
[2021-08-15] MEDS: SODIUM CHLORIDE 0.9% IV 1,000 ML 125 ML IV CONT ×2 (04:32→12:54)
[2021-08-15 05:59] LABS: Anion Gap 9 mmol/L (8-16); Blood Urea Nitrogen 23 mg/dL (9-20); Calcium 7.9 mg/dL (8.4-10.2); Carbon Dioxide 22 mmol/L (22-30); Chloride 106 mmol/L (98-107); Estimated CRCL calculation 109 ml/min; Estimated Glomerular Filt Rate > 60; Glucose 101 mg/dL (65-110); Potassium 3.8 mmol/L (3.4-5.0); Sodium 137 mmol/L (137-145)
--- NOTE | 2021-08-15 14:08 | PM.DS ---
DS: Admitting Diagnosis Discharge Date 08/15/2021 Admitting Diagnosis Generalized Weakness Nausea/Vomiting Stage IV Lung Cancer DS: Discharge Diagnosis Discharge Diagnosis (1) Lung cancer: Qualifiers: Laterality: unspecified laterality Lung location: unspecified part of lung Qualified Code(s): C34.90 - Malignant neoplasm of unspecified part of unspecified bronchus or lung Code(s): C34.90 - Malignant neoplasm of unspecified part of unspecified bronchus or lung Status: Acute (2) Adult failure to thrive: Code(s): R62.7 - Adult failure to thrive Status: Acute (3) Hospice care: Code(s): Z51.5 - Encounter for palliative care Status: Acute (4) Acute hypokalemia: Code(s): E87.6 - Hypokalemia Status: Acute DS: Summary Hospital Course Hospital Course: 60-year-old male with past medical history significant for stage iv lung cancer presented to emergency room due to generalized weakness, intractable nausea and vomiting, pain, patient has been unable to eat in the last 2 days Patient has had progressively worsening weakness over the course of the last 2 weeks or so which makes it very difficult for him to take care of himself. States that the pain medication is not working very well for him as he still has significant amount of pain. was found to be hypokalemic which was treated appropriately. Requested to be transitioned to hospice care. Hospice consult was initiated, was accepted by [facility] hospice [facility]. Discharged to Hospice care for adequate pain management. Status at Discharge Overall status at discharge: patient is not back to baseline Time Spent with Patient Time attestation: Total time spent providing and/or coordinating discharge services: Time spent: Less than 30 minutes Exam Const: General: in distress and uncomfortable HENMT: Other: dry MM Eyes: Pupils: Equal, round and reactive pupils present Neck: Neck: supple Resp: Auscultation: diminished lung sounds Cardio: Rate: regular rate Rhythm: regular rhythm GI: GI Palp: Yes Soft to palpation Auscultation: normal bowel sounds Psych: Mental Status: mental status grossly normal DS: Data Data Completed and Pending Labs on day of discharge: Labs from last 24 hours 08/15/21 08/14/21 08/14/21 05:36 18:51 18:51 WBC 12.3 H RBC 4.64 Hgb 13.7 L Hct 41.1 L MCV 88.6 MCH 29.5 MCHC 33.3 RDW 13.5 Plt Count 419 H MPV 9.1 Immature Gran % (Auto) 0.4 Neut % (Auto) 86.1 H Lymph % (Auto) 7.5 L [place] % (Auto) 5.5 Eos % (Auto) 0.3 Baso % (Auto) 0.2 Lymph # (Auto) 0.93 [place] # (Auto) 0.7 H Eos # (Auto) 0.0 Baso # (Auto) 0.0 Abs Immat Gran (auto) 0.05 H Absolute Neuts (auto) 10.6 H Absolute Nucleated RBC 0.0 Nucleated RBC % 0.0 Sodium 137 135 L Potassium 3.8 2.7 L* Chloride 106 99 Carbon Dioxide 22 23 Anion Gap 9 13 BUN 23 H 29 H Creatinine 0.60 L 0.80 Estim Creat Clear Calc 109 84 Estimated GFR > 60 > 60 Glucose 101 120 H Calcium 7.9 L 8.7 Total Bilirubin 0.8 AST 43 ALT 28 Alkaline Phosphatase 159 H Total Protein 7.0 Albumin 3.6 Discharge Plan Discharge Attending physician on discharge: Dulce Prince Discharging Clinician: Dulce Prnice Patient Disposition: Hospice - Medical Facility Stand Alone Forms: General Discharge Information Discharge Medications: Discontinued ibuprofen [Advil] 200 mg Tablet 200 mg PO Q6H PRN (Reason: Pain) RF: 0 No Action oxycodone-acetaminophen 10-325 mg Tablet 1 tablet PO Q6H PRN (Reason: Pain) RF: 0 Date of admission: 08/14/21 19:58 Primary Care Provider: Simón Franks Admitting Provider: Dwain Israel V. Attending physician on admission: Dwain Israel V. Condition: Guarded Prognosis [facility] Discharge Billing Inpatient Discharge Inpatient Discharge: [id number] Hosp D/C 30 Min
== END 2021-08-15 13:59 | disposition hospice, inpatient (51) ==
LOC: ANHED 19:51 → ANH3MEDSUR 08-15 10:29
PROVIDERS: Admitting Provider Internal Medicine; Emergency Provider Emergency Medicine; PCP Emergency Medicine; Visit Provider Internal Medicine
DX: C34.90 Malignant neoplasm of unspecified part of unspecified bronchus or lung (principal); I10 Essential (primary) hypertension; I73.9 Peripheral vascular disease, unspecified; J44.9 Chronic obstructive pulmonary disease, unspecified; E78.5 Hyperlipidemia, unspecified; E87.6 Hypokalemia; R62.7 Adult failure to thrive; F32.2 Major depressive disorder, single episode, severe without psychotic features; F43.10 Post-traumatic stress disorder, unspecified; Z51.5 Encounter for palliative care; Z87.891 Personal history of nicotine dependence
CPT/HCPCS: 36415; 71045; 80048; 80053; 85025; 93005; 94640; 96361; 96374; 96375; 96376; 99238; 99285; A9270; G0378; G0379; J0131; J1170; J1885; J2405; J3480; J7030

== ENCOUNTER 2021-08-15 13:45 | HOS | payer OTHER, SELFPAY ==
--- NOTE | 2021-08-15 14:00 | ADMGEN ---
This patient, Rojelio Steele, was admitted to [facility] Surg Room 326-01. Patient/family oriented to hospital policies and general routines including ID bracelet, bed and alarms, visiting hours, pain management, procedures, bathroom and other care routines, personal items, smoking policy, room service/diet, and visiting hours. Information on how to activate the Rapid Response Team has been discussed. Patient/Family are encouraged to report perceived risks to care and to ask questions if they do not understand what they are told or what they should do.
[2021-08-15 14:23] VITALS: BMI 23.1
[2021-08-15] MEDS: MORPHINE SULFATE INJ (*CRX) 10 MG/ML AMP 6 MG IV PUSH ×2 (14:55→18:14)
[2021-08-15] MEDS: MORPHINE SULFATE INJ (*CRX) 50 MG in SODIUM CHLORIDE 0.9% IV 95 ML 6 MG IV CONT (15:30)
--- NOTE | 2021-08-15 16:40 | PM.IMHP ---
H&P: HPI History of Present Illness Date/Time: 08/15/21 16:40 Chief Complaint: uncontrolled pain Narrative: This 60 y/o gentleman was found to have a subcentimeter lung mass in 2020. Subsequent imaging revelaed enlargement, then lymphadenopathy that was presumed due to metastases as well as evidence for lymphangitic spread. He began to experience headaches and chest pain that increased to the degree that Percocet 10/325 every four hours was inadequate. He presented to ED due to uncontrolled pain. 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 IV prn hydromorphone, IV ketoralac, PO percocet 10/325, and acetaminophen PO were insufficient to control his pain. Although he remained A/O x 4, he was unable to get out of bed without assistance. He was experiencing nausea with emesis and was able to tolerate only small amounts of po intake. His daily MME was approximately 205. PPS was 30. Prior to his presumed cancer dx, PPS was 100. He refused to consider chemotherpy and wishes comfort care only. His brother is willing to stay with him after he returns home. Review of Systems Review of Systems: Chest pain, cough, castillo, n/v, decreased appetitie, weight loss All systems reviewed & are unremarkable except as noted in HPI and below PMFSH Past Medical History Medical History History of tobacco use [id number] smoking history. Quit in 2020 Hyperlipidemia Hypertension Insomnia Marijuana smoker Peripheral vascular disease Posttraumatic stress disorder Surgical History Surgical History History of vascular surgery Bilateral lower extremity stent. Family History Family History Father Lung cancer Diabetes mellitus Heart disease Sibling Heart disease Hypertension Diabetes mellitus Social History Social History (Updated 08/16/21 @ 12:50 by Juan Forbes MD) Social History: The patient lives alone with his dog. He is on disability. Smoked 1.5 packs of cigarettes a day since the age of 7, quit in 2020. Smokes marijuana. No alcohol abuse. His brother, Lucien King, is his surrogate decision-maker. CODE STATUS: DNR. 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 Spiritual care concerns: No Meds Home Medications and Allergies Home Medications Medication Instructions Recorded Confirmed Type ibuprofen [Advil] 200 mg PO Q6H PRN 08/14/21 08/15/21 History oxycodone-acetaminophen 1 tablet PO Q6H PRN 08/14/21 08/15/21 History Allergies Allergy/AdvReac Type Severity Reaction Status Date / Time No Known Allergies Allergy Verified 08/15/21 14:29 Exam Narrative: HEENT: PERRL, sclerae nonicteric, pharyngeal mucosa pink and intact NECK: No JVD, adenopathy, or thyromegaly CHEST: COARSE BS. Normal effort. HEART: NL S1/S2, regular, no murmur ABDOMEN: BS+, soft, nontender, no mass, no bruits EXTREMITIES: No cyanosis, edema, or clubbing NEUROLOGIC: CN intact and symmetric to inspection. MUSCULOSKELETAL: Tone and strength symmetric. PSYCH: Alert. Oriented to person, place, and time. Assessment and Plan Assessment and plan (1) Palliative care by specialist: Code(s): Z51.5 - Encounter for palliative care Status: Acute Assessment and Plan: Meets hospice inpatient criteria due to uncontrolled pain requiring continuous iv narcotics for control Morphine 3mg/hr and 6mg iv q 2 hr prn Solu-Medrol 30mg IV q 12 hrs Prochlorperazine 10mg IV q 6 hrs prn Lorazepam 1mg IV q 4 hr prn 08/15: D/w pt at be
[2021-08-15] MEDS: LORazepam INJ (*CRX) 2 MG/ML VIAL 1 MG IV PUSH (18:58)
[2021-08-15] MEDS: methylPREDNISolone SOD SUCC 40 MG VIAL 30 MG IV PUSH (20:25)
[2021-08-15] MEDS: ACETAMINOPHEN 650 MG SUPPOSITORY RECTAL (22:22)
[2021-08-16] MEDS: MORPHINE SULFATE INJ (*CRX) 50 MG in SODIUM CHLORIDE 0.9% IV 95 ML 10 MG IV CONT ×2 (03:29→12:18)
[2021-08-16] MEDS: MORPHINE SULFATE INJ (*CRX) 10 MG/ML AMP IV PUSH ×5 (03:37→20:06)
[2021-08-16] MEDS: ACETAMINOPHEN 650 MG SUPPOSITORY RECTAL (04:35)
[2021-08-16] MEDS: methylPREDNISolone SOD SUCC 40 MG VIAL 30 MG IV PUSH ×2 (08:32→20:04)
--- NOTE | 2021-08-16 16:43 | PM.IMPN ---
Progress Note: A&P Assessment and Plan (1) Palliative care by specialist: Code(s): Z51.5 - Encounter for palliative care Status: Acute Assessment and Plan: Meets hospice inpatient criteria due to uncontrolled pain requiring continuous iv narcotics for control Morphine 3mg/hr and 6mg iv q 2 hr prn Solu-Medrol 30mg IV q 12 hrs Prochlorperazine 10mg IV q 6 hrs prn Lorazepam 1mg IV q 4 hr prn 08/15: D/w pt at bedside that goal is to control pain so that he can return to his home 08/16: increased morphine drip from 5 to 8 mg/hr and added famotidine (2) Lung cancer: Qualifiers: Laterality: unspecified laterality Lung location: unspecified part of lung Qualified Code(s): C34.90 - Malignant neoplasm of unspecified part of unspecified bronchus or lung Code(s): C34.90 - Malignant neoplasm of unspecified part of unspecified bronchus or lung Status: Acute (3) Peripheral vascular disease: Code(s): I73.9 - Peripheral vascular disease, unspecified Status: Acute (4) COPD (chronic obstructive pulmonary disease): Qualifiers: COPD type: unspecified COPD Qualified Code(s): J44.9 - Chronic obstructive pulmonary disease, unspecified Code(s): J44.9 - Chronic obstructive pulmonary disease, unspecified Status: Acute Subjective Date/time seen: 08/16/21 16:43 Interval history: 08/16: Still with productive cough. Pain in chest and head still moderate. Eating better. No emesis. HB. Takes famotidine at home. Review of Systems Review of Systems: All systems reviewed & are unremarkable except as noted in HPI and below Exam Narrative: HEENT: PERRL, sclerae nonicteric, pharyngeal mucosa pink and intact NECK: No JVD, adenopathy, or thyromegaly CHEST: COARSE BS. Normal effort. HEART: NL S1/S2, regular, no murmur ABDOMEN: BS+, soft, nontender, no mass, no bruits EXTREMITIES: No cyanosis, edema, or clubbing NEUROLOGIC: CN intact and symmetric to inspection. MUSCULOSKELETAL: Tone and strength symmetric. PSYCH: Alert. Oriented to person, place, and time. Objective Data Intake/Output Intake/Output: Intake & Output 04/1208/14/21 08/15/21 08/16/21 23:59 23:59 23:59 23:59 Intake Total 240 320 Balance 240 320 Meds/Results Medications: Active Medications Generic Name Dose Route Start Last Admin Trade Name Freq PRN Reason Stop Dose Admin Acetaminophen 650 mg 08/16/21 12:46 Acetaminophen 325 Mg Tablet PO Q6H PRN Mild Pain (1-3) or Fever Artificial Tears 0 drop 08/15/21 14:30 Artificial Tears Ophth Soln 15 Ml Bottle EACH EYE Q12H PRN Dry Eye(s) Bisacodyl 10 mg 08/15/21 14:30 Bisacodyl 10 Mg Suppository RECTAL DAILY PRN Constipation Glycopyrrolate 0.1 mg 08/15/21 14:30 Glycopyrrolate Inj (*Sp) 0.2 Mg/Ml Vial IV PUSH Q4H PRN secretions Morphine Sulfate 50 mg/ Sodium 100 mls @ 16 mls/hr 08/16/21 16:37 Chloride IV CONT .Q6H15M SUKHI 8 MG/HR Lorazepam 1 mg 08/15/21 14:30 08/15/21 18:58 Lorazepam Inj (*Crx) 2 Mg/Ml Vial IV PUSH 1 mg Q4H PRN Administration RESTLESSNESS Methylprednisolone Sodium Succinate 30 mg 08/15/21 21:00 08/16/21 08:32 Methylprednisolone Sod Succ 40 Mg Vial IV PUSH 30 mg Q12HR SUKHI Administration Morphine Sulfate 10 mg 08/15/21 22:06 08/16/21 16:06 Morphine Sulfate Inj (*Crx) 10 Mg/Ml Amp IV PUSH 10 mg Q1H PRN Administration Pain SOB Prochlorperazine Edisylate 10 mg 08/15/21 14:30 Prochlorperazine Edisylate 10 Mg/2 Ml Vial IV PUSH Q6H PRN Nausea And Vomiting
[2021-08-16] MEDS: MORPHINE SULFATE INJ (*CRX) 50 MG in SODIUM CHLORIDE 0.9% IV 95 ML 16 MG IV CONT ×2 (17:56→20:17)
[2021-08-16] MEDS: FAMOTIDINE 20 MG/2 ML VIAL 40 MG IV PUSH ×2 (17:57→20:05)
[2021-08-17] MEDS: ACETAMINOPHEN 325 MG TABLET 650 MG PO ×2 (00:26→21:17)
[2021-08-17] MEDS: MORPHINE SULFATE INJ (*CRX) 50 MG in SODIUM CHLORIDE 0.9% IV 95 ML 16 MG IV CONT ×2 (02:40→08:38)
[2021-08-17] MEDS: MORPHINE SULFATE INJ (*CRX) 10 MG/ML AMP IV PUSH ×3 (06:10→10:40)
[2021-08-17] MEDS: methylPREDNISolone SOD SUCC 40 MG VIAL 30 MG IV PUSH ×2 (08:45→21:08)
[2021-08-17] MEDS: FAMOTIDINE 20 MG/2 ML VIAL 40 MG IV PUSH ×2 (08:45→21:09)
[2021-08-17 09:39] VITALS: BP 129/76; PULSE 73; RESP 20; TEMP 37.3; O2SAT 86
[2021-08-17] MEDS: PROCHLORPERAZINE EDISYLATE 10 MG/2 ML VIAL IV PUSH (10:40)
--- NOTE | 2021-08-17 12:40 | PM.IMPN ---
Progress Note: A&P Assessment and Plan (1) Palliative care by specialist: Code(s): Z51.5 - Encounter for palliative care Status: Acute Assessment and Plan: Meets hospice inpatient criteria due to uncontrolled pain requiring continuous iv narcotics for control Morphine 3mg/hr and 6mg iv q 2 hr prn Solu-Medrol 30mg IV q 12 hrs Prochlorperazine 10mg IV q 6 hrs prn Lorazepam 1mg IV q 4 hr prn 08/15: D/w pt at bedside that goal is to control pain so that he can return to his home 08/16: increased morphine drip from 5 to 8 mg/hr and added famotidine 08/17: discussed that numbness is likely due to medications; ready to transition to po ms contin 200mg q 8 hrs; continue iv breakthrough meds (2) Lung cancer: Qualifiers: Laterality: unspecified laterality Lung location: unspecified part of lung Qualified Code(s): C34.90 - Malignant neoplasm of unspecified part of unspecified bronchus or lung Code(s): C34.90 - Malignant neoplasm of unspecified part of unspecified bronchus or lung Status: Acute (3) Peripheral vascular disease: Code(s): I73.9 - Peripheral vascular disease, unspecified Status: Acute (4) COPD (chronic obstructive pulmonary disease): Qualifiers: COPD type: unspecified COPD Qualified Code(s): J44.9 - Chronic obstructive pulmonary disease, unspecified Code(s): J44.9 - Chronic obstructive pulmonary disease, unspecified Status: Acute Subjective Date/time seen: 08/17/21 12:40 Interval history: 08/17: HB controlled. Legs feel weak. Pain in chest and head /10. Numb sensation in feet and scrotum/penis. Review of Systems Review of Systems: All systems reviewed & are unremarkable except as noted in HPI and below Exam Narrative: HEENT: PERRL, sclerae nonicteric, pharyngeal mucosa pink and intact NECK: No JVD, adenopathy, or thyromegaly CHEST: COARSE BS. Normal effort. HEART: NL S1/S2, regular, no murmur ABDOMEN: BS+, soft, nontender, no mass, no bruits EXTREMITIES: No cyanosis, edema, or clubbing NEUROLOGIC: CN intact and symmetric to inspection. MUSCULOSKELETAL: Tone and strength symmetric. PSYCH: Alert. Oriented to person, place, and time. : Male ganitalia intact, penis circumcised Objective Data Vital Signs Vital Signs: Vital Signs - 24 hr 08/17/21 09:39 Temperature 99.2 F Pulse Rate 73 Respiratory Rate 20 Blood Pressure 129/76 Pulse Oximetry 86 L Intake/Output Intake/Output: Intake & Output 08/14/21 08/15/21 08/16/21 08/17/21 23:59 23:59 23:59 23:59 Intake Total 240 660 440 Balance 240 660 440 Meds/Results Medications: Active Medications Generic Name Dose Route Start Last Admin Trade Name Freq PRN Reason Stop Dose Admin Acetaminophen 650 mg 08/16/21 12:46 08/17/21 00:26 Acetaminophen 325 Mg Tablet PO 650 mg Q6H PRN Administration Mild Pain (1-3) or Fever Artificial Tears 0 drop 08/15/21 14:30 Artificial Tears Ophth Soln 15 Ml Bottle EACH EYE Q12H PRN Dry Eye(s) Bisacodyl 10 mg 08/15/21 14:30 Bisacodyl 10 Mg Suppository RECTAL DAILY PRN Constipation Famotidine 40 mg 08/16/21 16:56 08/17/21 08:45 Famotidine 20 Mg/2 Ml Vial IV PUSH 40 mg Q12HR SUKHI Administration Glycopyrrolate 0.1 mg 08/15/21 14:30 Glycopyrrolate Inj (*Sp) 0.2 Mg/Ml Vial IV PUSH Q4H PRN secretions Morphine Sulfate 50 mg/ Sodium 100 mls @ 16 mls/hr 08/16/21 16:37 08/17/21 08:38 Chloride IV CONT 8 mg/hr .Q6H15M SUKHI 16 mls/hr Administration 8 MG/HR Lorazepam 1 mg 08/15/21 14:30 08/15/21 18:58 Lorazepam Inj (*Crx) 2 Mg/Ml Vial IV PUSH 1 mg Q4H PRN Administration RESTLESSNESS Methylprednisolone Sodium Succinate 30 mg 08/15/21 21:00 08/17/21 08:45 Methylprednisolone Sod Succ 40 Mg Vial IV PUSH 30 mg Q12HR SUKHI Administration Morphine Sulfate 10 mg 08/15/21 22:06 08/17/21 10:40 Morphine Sulfate Inj (*Crx) 10 Mg/M
[2021-08-17] MEDS: MORPHINE SULFATE (*CRX) 100 MG TABCR 200 MG PO ×2 (14:30→21:08)
[2021-08-17 20:00] VITALS: BP 135/68; PULSE 97; RESP 16; TEMP 36; O2SAT 91
[2021-08-18] MEDS: MORPHINE SULFATE INJ (*CRX) 10 MG/ML AMP IV PUSH (02:16)
[2021-08-18] MEDS: MORPHINE SULFATE (*CRX) 100 MG TABCR 200 MG PO ×3 (06:31→21:50)
[2021-08-18] MEDS: FAMOTIDINE 20 MG/2 ML VIAL 40 MG IV PUSH ×2 (08:11→21:51)
[2021-08-18] MEDS: methylPREDNISolone SOD SUCC 40 MG VIAL 30 MG IV PUSH ×2 (08:12→21:51)
[2021-08-18] MEDS: ACETAMINOPHEN 325 MG TABLET 650 MG PO ×2 (08:14→16:42)
[2021-08-18 11:25] VITALS: BP 150/83; PULSE 78; RESP 20; TEMP 36.6; O2SAT 92
--- NOTE | 2021-08-18 13:48 | PM.DS ---
DS: Admitting Diagnosis Discharge Date 08/19/2021 Admitting Diagnosis UNCONTROLLED PAIN DUE TO METASTATAIC LUNG CANCER ADMITTED TO INPATIENT HOSPICE SERVICE MEDICATIONS TITRATED TO PAIN LEVEL 3-5. PATIENT REMAINED AMBULATORY WHILE HOLDING IV POLE. NUMBNESS OF FEET AND GENITALIA IMPROVED AFTER TRANSITION TO PO MEDS. N/V RESOLVED. APPETITE IMPROVED. HE REMAINED A/O X4. HIS BROTHER WAS TO STAY WITH THE [facility] AT [facility] HOME. DS: Discharge Diagnosis Discharge Diagnosis (1) Palliative care by specialist: Code(s): Z51.5 - Encounter for palliative care Status: Acute Assessment and Plan: Meets hospice inpatient criteria due to uncontrolled pain requiring continuous iv narcotics for control Morphine initially 3mg/hr and 6mg iv q 2 hr prn and titrated up to 8 mg/hr before pain was 5/10 or less. Solu-Medrol 30mg IV q 12 hrs Prochlorperazine 10mg IV q 6 hrs prn Lorazepam 1mg IV q 4 hr prn 08/15: D/w pt at bedside that goal is to control pain so that he can return to his home 08/16: increased morphine drip from 5 to 8 mg/hr and added famotidine 08/17: discussed that numbness is likely due to medications; ready to transition to po ms contin 200mg q 8 hrs; continue iv breakthrough meds 08/18: No use of breakthrough meds; taking 1-2 of MS Contin q 8 hrs instead of 2 q 8 hrs; pain control adequate; ambulates using IV pole and will use walker at home; brother is there to assist him as well. But is unable to go home today due to social issues. Plan discharge for 08/19. (2) Lung cancer: Qualifiers: Laterality: unspecified laterality Lung location: unspecified part of lung Qualified Code(s): C34.90 - Malignant neoplasm of unspecified part of unspecified bronchus or lung Code(s): C34.90 - Malignant neoplasm of unspecified part of unspecified bronchus or lung Status: Acute (3) Peripheral vascular disease: Code(s): I73.9 - Peripheral vascular disease, unspecified Status: Acute (4) COPD (chronic obstructive pulmonary disease): Qualifiers: COPD type: unspecified COPD Qualified Code(s): J44.9 - Chronic obstructive pulmonary disease, unspecified Code(s): J44.9 - Chronic obstructive pulmonary disease, unspecified Status: Acute DS: Summary Hospital Course Reason for hospitalization: uncontrolled pain Hospital Course: Admitted due to uncontrolled pain. IV morphine titrated to pain 5/10 or less while still able to ambulate. C/o numb sensation in genitals and distal legs that improved with transition to PO MS CONTIN 100 mg 2 every 8 hours. Was taking only 1 tab intermittently and 2 the remainder of doses. Status at Discharge Cognitive/behavioral status at discharge: A/O x 4 with speech slightly slurred and sometimes hesitant. Functional status at discharge: uses cane/walker Overall status at discharge: patient is not back to baseline Time Spent with Patient Time attestation: Total time spent providing and/or coordinating discharge services: Time spent: Greater than 30 minutes Exam Narrative: A/0 X 4 Discharge Plan Discharge Discharging Clinician: Juan Forbes Patient Disposition: Hospice - Home Activity: no straining and no driving Diet: as tolerated Discharge Instructions: Ambulate with walker or assistance or both Please contact [employer] at [phone] to notify once you've arrived back to your home. Thank you. Stand Alone Forms: General Discharge Information Discharge Medications: New morphine 100 mg Tablet Extended Release 200 mg PO Q8HR Qty: 12 RF: 0 bisacodyl 10 mg Suppository 10 mg RECTAL DAILY PRN (Reason: Constipation) Qty: 4 RF: 0 prednisone 20 mg tablet 20 mg PO DAILY Qty: 4 RF: 0 morphine concentrate 100 mg/5 mL (20 mg/mL) solution 30 mg PO Q2H PRN (Reason: pain (scale score 7-10)) Qty: 30 RF: 0 prochlorperazine maleate 10 mg tablet 10 mg PO Q6H PRN (Reason: nausea and vomiting) Qty: 7 RF: 0
[2021-08-18] MEDS: PROCHLORPERAZINE EDISYLATE 10 MG/2 ML VIAL IV PUSH (16:46)
[2021-08-18 20:00] VITALS: BP 142/67; PULSE 84; RESP 16; TEMP 36.3; O2SAT 95
[2021-08-19] MEDS: ACETAMINOPHEN 325 MG TABLET 650 MG PO (04:14)
[2021-08-19] MEDS: MORPHINE SULFATE (*CRX) 100 MG TABCR 200 MG PO ×2 (06:06→14:47)
[2021-08-19 08:00] VITALS: BP 157/95; PULSE 118; RESP 18; TEMP 36.7; O2SAT 92
--- NOTE | 2021-08-19 11:02 | PC.NURSE ---
Pt's brother, Severo, called wanting to argue to keep pt admitted to the hospital. I explained that pt was of legal age and in possession of all his faculties (A&O4); therefore, it is pt's decision to go on hospice and to utilize hospice care at his home. I further explained that hospice has been arranged and the discharge already processed; and, the only remaining thing left was for Severo to pick pt up as he agreed to do. Severo began stating that pt could not walk. I explained that pt is not complaining of any problems with his legs and has been up walking around his room and walking to and from the bathroom without any difficulty. Severo did not like this and hung up on me. Immediately after the phone call, I took pt's pain prescriptions to his room (as part of the discharge process) and informed him of my conversation with Severo. Pt informed me that Severo had called him first and argued with him about going on hospice as did his sister who lives in [place] (she called the nurses station earlier arguing with us to force pt to stay and receive treatment). Pt apologized for the behavior of his siblings and confirmed that his legs are fine and that it is his decision to go on hospice and to do so from his home.
== END 2021-08-19 15:19 | disposition hospice, home (50) | DRG 951 ==
PROVIDERS: Admitting Provider Internal Medicine; PCP Emergency Medicine; Visit Provider Internal Medicine
DX: Z51.5 Encounter for palliative care (principal); C34.90 Malignant neoplasm of unspecified part of unspecified bronchus or lung; C77.9 Secondary and unspecified malignant neoplasm of lymph node, unspecified; J44.9 Chronic obstructive pulmonary disease, unspecified; I73.9 Peripheral vascular disease, unspecified; E78.5 Hyperlipidemia, unspecified; I10 Essential (primary) hypertension; F43.10 Post-traumatic stress disorder, unspecified; Z87.891 Personal history of nicotine dependence; Z95.820 Peripheral vascular angioplasty status with implants and grafts
CPT/HCPCS: A9270; J0780; J2060; J2270; J2920